=== PATIENT | female | born 1935 | race Caucasian/White ===

== ENCOUNTER → 2023-08-24 | Outpatient (CLI) | payer MEDICARE, OTHER, SELFPAY ==
--- OUTSIDE RECORDS SUMMARY | 2023-08-24 14:15 | XMS RPT_ITS | CCD ---
Author Name Unknown Address [address] [place] [address] Organization [facility] Care Team Providers Care Rn Case Mgr Name Role Phone AnnalisamarioDarwin Unavailable Unavailabl e Fracasso, Michael Alfredo Unavailable Unavailabl e Dumot, Guy Forrest Unavailable Unavailable Fracasso, Michael Alfredo Unavailable Unavailabl e Fracasso, Michael Alfredo Unavailable Unavailabl e Dumot, Guy Forrest Unavailable Unavailable Michael Orellana Primary Care Provider Mcihael Orellana Primary Care Provider Bradleyo DOMichael Primary Care Provider Michael Orellana DO Primary Care Provider Weston Pace DO Primary Care Provider Michael Orellana DO Primary Care Provider Weston Pace DO Primary Care Provider WESTON PACE Attending Unavailable WESTON PACE Primary Care Unavailable JAZZ ENRIQUEZ Attending Unavailable MICHAEL ORELLANA Primary Care Unavailable WESTON PACE Primary Care Unavailable WESTON PACE Attending Unavailable WESTON PACE Primary Care Unavailable Medications Current Medications Medication Drug Class(es) Dates Sig (Normalized) Sig (Original) amLODIPine 5 mg oral tablet (13 sources) Dihydropyridine Calcium Channel Misbah Start: 05-28-2023 amLODIPine (Norvasc) 5 MG tablet Indications: Essential hypertension Increase to 5 mg q PM 30 tablet 5 05/28/2023 Active Completed/Discontinued Medications Medication Drug Class(es) Dates Sig (Normalized) Sig (Original) gadobutrol (GADAVIST) injection 5 mL (1 source) Start: 06-16-2020 End: 06-16-2020 gadobutrol (GADAVIST) injection 5 mL Problems Active Problems Problem Classification Problem Date Documented Date Episodic/Chronic Anxiety disorders (8 sources) Mixed anxiety and depressive disorder; Translations: [Anxiety disorder, unspecified] Onset: 11-19-2015 01-28-2023 Chronic Coronary atherosclerosis and other heart disease (2 sources) Coronary atherosclerosis and other heart disease Onset: 04-28-2017 Deficiency and other anemia (1 source) Iron deficiency anemia secondary to blood loss (chronic); Translations: [Iron deficiency anemia secondary to blood loss (chronic)] Onset: 04-28-2017 Chronic Deficiency and other anemia (1 source) Deficiency and other anemia Onset: 04-28-2017 Diabetes mellitus without complication (17 sources) Type 2 diabetes mellitus without complication; Translations: [Type 2 diabetes mellitus without complications] Onset: 11-19-2015 11-19-2015 Chronic Diabetes mellitus without complication (1 source) Diabetes mellitus without complication Onset: 04-28-2017 Disorders of lipid metabolism (16 sources) Hypercholesterolemia; Translations: [Pure hypercholesterolemia, unspecified] Onset: 11-19-2015 11-19-2015 Chronic Esophageal disorders (16 sources) Gastroesophageal reflux disease without esophagitis; Translations: [Gastro-esophageal reflux disease without esophagitis] Onset: 11-19-2015 11-19-2015 Chronic Esophageal disorders (1 source) Esophageal disorders Onset: 04-28-2017 Essential hypertension (16 sources) Essential hypertension; Translations: [Essential (primary) hypertension] Onset: 10-12-2022 10-12-2022 Chronic Mood disorders (7 sources) Depressive disorder; Translations: [Major depressive disorder, single episode, unspecified] Onset: 11-19-2015 11-19-2015 Chronic Mood disorders (2 sources) Mood disorders; Translations: [Depression, unspecified] Onset: 05-31-2022 Occlusion or stenosis of precerebral arteries (8 sources) Left carotid artery stenosis; Translations: [Occlusion and stenosis of left carotid artery] Onset: 01-28-2023 01-28-2023 Chronic Other acquired deformities (1 source) Disorder of hand; Translations: [Contracture, unspecified hand] Chronic Other nervous system disorders (2 sources) Ataxia; Translations: [Ataxia, unspecified] Episodic Spondylosis; intervertebral disc disorders; other back problems (3 sources) Cervical radiculopathy; Translations: [Radiculopathy, cervical region] Onset: 04-29-2023 04-29-2023 Episodic Unclassified (1 source) Atelectasis / J98.11(ICD-10) Onset: 05-27-2017 Unclassified (1 source) Pulmonary fibrosis, unspecified / J84.10(ICD-10) Onset: 05-27-2017 Unclassified (3 sources) Benign neoplasm of duodenum / D13.2(ICD-10) Onset: 04-28-2017 Unclassified (1 source) Polyp of stomach and duodenum / K31.7(ICD-10) Onset: 04-28-2017 Unclassified (1 source) Liver disease, unspecified / K76.9(ICD-10) Onset: 05-27-2017 Unclassified (1 source) Cyst of pancreas / K86.2(ICD-10) Onset: 05-27-2017 Unclassified (1 source) Benign neoplasm of pharynx, unspecified / D10.9(ICD-10) Onset: 04-28-2017 Unclassified (1 source) long term care pharmacist (current) use of aspirin / Z79.82(ICD-10) Onset: 04-28-2017 Unclassified (1 source) Other specified diseases of biliary tract / K83.8(ICD-10) Onset: 05-27-2017 Unclassified (2 sources) Disease of stomach and duodenum, unspecified / K31.9(ICD-10) Onset: 04-28-2017 Unclassified (1 source) Personal history of malignant neoplasm of organs and systems / Z85.89(ICD-10) Onset: 04-28-2017 Unclassified (1 source) Unspecified osteoarthritis, unspecified site / M19.90(ICD-10) Onset: 04-28-2017 Unclassified (1 source) Anxiety disorder, unspecified / F41.9(ICD-10) Onset: 04-28-2017 Unclassified (1 source) Personal history of nicotine dependence / Z87.891(ICD-10) Onset: 04-28-2017 Unclassified (1 source) Chronic vascular disorders of intestine / K55.1(ICD-10) Onset: 05-27-2017 Unclassified (1 source) Athscl heart disease of [place] coronary artery w/o ang pctrs / I25.10(ICD-10) Onset: 05-27-2017 Past or Other Problems Problem Classification Problem Date Documented Date Episodic/Chronic Biliary tract disease (8 sources) Calculus of bile duct with obstruction; Translations: [Calculus of bile duct without cholangitis or cholecystitis with obstruction] Onset: 01-28-2023 01-28-2023 Episodic Diabetes mellitus with complications (9 sources) Hyperglycemia due to type 2 diabetes mellitus; Translations: [Type 2 diabetes mellitus with hyperglycemia] Onset: 12-21-2021 Resolved: 01-28-2023 05-31-2022 Chronic Other aftercare (1 source) Patient encounter status; Translations: [long term care pharmacist (current) use of non-steroidal anti-inflammatories (NSAID)] Onset: 11-19-2015 Resolved: 07-29-2016 07-29-2016 Episodic Other and unspecified benign neoplasm (2 sources) Benign neoplasm of duodenum; Translations: [Polyp of stomach and duodenum] Onset: 04-28-2017 Episodic Pancreatic disorders (not diabetes) (8 sources) Mass of pancreas; Translations: [Other specified diseases of pancreas] Onset: 01-28-2023 01-28-2023 Episodic Unclassified (2 sources) Patient encounter status; Translations: [NSAID long-term use] Onset: 11-19-2015 Resolved: 07-29-2016 07-29-2016 Results Test Name Value Interpretation Reference Range Facil ity Vital Signs Date Time Vital Sign Value Performing Clinician Racquel luque 05-26-2023 11:14-0400 Diastolic blood pressure 72 mm[Hg] [facility] Schedule [facility] 05-26-2023 11:14-0400 Systolic blood pressure 130 mm[Hg] [facility] Schedule [facility] 05-26-2023 11:03-0400 Heart rate 87 /min [facility] Schedule [facility] 05-26-2023 11:03-0400 SaO2% (BldA) [Mass fraction] 98 % [facility] Schedule [facility] 04-29-2023 09:47-0400 Body height 157.5 cm Weston Pace DO Work Phone: [facility] 04-29-2023 09:47-0400 Body mass index (BMI) [Ratio] 23.59 kg/m2 Weston Pace DO Work Phone: [facility] 04-29-2023 09:47-0400 Body temperature 97.5 [degF] Weston Pace DO Work Phone: [facility] [employer] 04-29-2023 09:47-0400 Body weight 58.51 kg Weston Pace DO Work Phone: [facility] [employer] 04-29-2023 09:47-0400 Diastolic blood pressure 73 mm[Hg] Weston Camposa DO Work Phone: [facility] [employer] 04-29-2023 09:47-0400 Heart rate 57 /min Weston Camposa DO Work Phone: [facility] [employer] 04-29-2023 09:47-0400 SaO2% (BldA) [Mass fraction] 97 % Weston Pace DO Work Phone: [facility] [employer] 04-29-2023 09:47-0400 Systolic blood pressure 152 mm[Hg] Weston Camposa DO Work Phone: [facility] [employer] 01-28-2023 10:00-0400 Body height 157.5 cm Weston Pace DO Work Phone: [facility] [employer] 01-28-2023 10:00-0400 Body mass index (BMI) [Ratio] 23.23 kg/m2 Weston Pace DO Work Phone: [facility] [employer] 01-28-2023 10:00-0400 Body temperature 97.3 [degF] Weston Pace DO Work Phone: [facility] [employer] 01-28-2023 10:00-0400 Body weight 57.61 kg Weston Pace DO Work Phone: [facility] [employer] 01-28-2023 10:00-0400 Diastolic blood pressure 68 mm[Hg] Weston Camposa DO Work Phone: [facility] [employer] 01-28-2023 10:00-0400 Heart rate 73 /min Weston Pace DO Work Phone: [facility] [employer] 01-28-2023 10:00-0400 SaO2% (BldA) [Mass fraction] 98 % Weston Pace DO Work Phone: [facility] 01-28-2023 10:00-0400 Systolic blood pressure 138 mm[Hg] Weston Pace DO Work Phone: [facility] Encounters Encounter Date Encounter Type Care Provider Facility Start: 05-28-2023 Orders Only Weston ren DO Work Phone: [facility] Procedures Date Procedure Procedure Detail Performing Clinician Start: 06-16-2020 Mri brain brain stem w/o w/contrast material Michael Mario Mk Work Phone: Start: 04-28-2017 Anesth, upper gi visualize Darwin Colvinbrady Start: 04-28-2017 Egd transoral biopsy single/multiple Darwin Colvinkimberleemario Start: 03-23-2011 SURGICAL PATHOLOGY, CONVERTED Dillan Carpenter MD Work Phone: Start: 03-11-2011 SURGICAL PATHOLOGY, CONVERTED Dillan Carpenter MD Work Phone: Start: 06-28-2008 CYTOLOGY ACIDIZER HELPER, CONVERTED Jaret Nair MD Work Phone: Plan of Treatment Date Care Activity Detail Author Start: 12-03-2024 Diabetes Screening Diabetes Screening [facility] Start: 04-13-2024 Glaucoma screening Diabetes: Retinopathy Screening [facility] Start: 10-12-2023 Diabetic foot examination Diabetes: Foot Exam [facility] Start: 08-26-2023 End: 08-26-2023 Patient encounter procedure [facility] Start: 05-26-2023 End: 05-26-2023 Clinical Support 05/26/2023 11:00 AM EDT Clinical Support [facility] [address] [place] [address] [facility] Start: 04-29-2023 End: 04-29-2024 CBC W Auto Differential panel - Blood CBC auto differential Lab Routine Essential hypertension Expected: 04/29/2023 (Approximate), Expires: 04/29/2024 [facility] Work Phone: Immunizations Immunization Date Immunization Notes Care Provider Salima mead 06-17-2022 Covid-19, Pfizer Bivalent Booster, (Age 12y+), Im, 30 Mcg/0e Michael Orellana DO Work Phone: [facility] 05-31-2022 influenza, injectabl e, quadrivalent, preservative free Weston Pace DO Work Phone: [facility] 05-31-2022 Influenza, Seasonal, Quadrivalent, Adjuvanted Michael Orellana DO Work Phone: [facility] 05-31-2022 influenza virus vacc ine, unspecified formulation Weston Pace DO Work Phone: [facility] 07-29-2021 zoster vaccine recombinant Michael Orellana DO Work Phone: [facility] 05-29-2021 Pfizer SARS-CoV-2 Vaccination Michael Orellana DO Work Phone: [facility] 05-21-2021 Influenza, High-dose Seasonal, Quadrivalent, Preservative Free Michael Orellana DO Work Phone: [facility] 05-21-2021 influenza virus vacc ine, unspecified formulation Jaret Nair MD Work Phone: [facility] 05-02-2021 zoster vaccine recombinant Michael Orellana DO Work Phone: [facility] 10-02-2020 COVID-19, Pfizer, PF , 30mcg/0.3mL Michael Orellana DO Work Phone: [facility] 09-04-2020 COVID-19, Pfizer, PF , 30mcg/0.3mL Michael Orellana DO Work Phone: [facility] 05-05-2020 influenza, injectabl e, quadrivalent, preservative free Michael Orellana DO Work Phone: [facility] 06-02-2019 Influenza, injectabl e, Madin [place] Canine Kidney, preservative free, quadrivalent Michael Mk [employer] 06-02-2018 Influenza, injectabl e, Madin [place] Canine Kidney, preservative free, quadrivalent [facility] 05-17-2017 influenza, injectabl e, quadrivalent, preservative free [facility] [place] 05-29-2016 influenza, high dose seasonal, preservative-free Michael Orellana DO Work Phone: [facility] 05-29-2016 influenza, injectabl e, quadrivalent, contains preservative [facility] [place] 07-16-2015 pneumococcal conjuga te vaccine, 13 valent [facility] 05-15-2014 influenza, seasonal, injectable Michael Orellana DO Work Phone: [facility] 05-15-2014 pneumococcal Conjuga te, unspecified formulation [facility] [place] 05-15-2014 pneumococcal polysaccharide vaccine, 23 valent [facility] 07-31-2009 novel influenza-H1N1 -09, preservative-free, injectable [facility] [place] Payers Date Payer Category Payer Medicare xxxxxxxxxxx [id number] 2005 Private Health Insurance [id number] 2005 Private Health Insurance [id number] 1999 Medicare [id number] 1999 Medicare [id number] Medicare [id number] Social History Date Type Detail Facility Start: 06-12-2019 End: 04-29-2020 Tobacco smoking status NHIS Former smoker [facility] End: 03-19-1997 History of tobacco use Current smoker [employer] Start: 04-29-2020 Tobacco use and exposure Never used [employer] Start: 04-29-2020 End: 04-29-2023 Alcohol intake Current non-drinker of alcohol (finding) [employer] Start: 02-12-2019 History SDOH Alcohol Frequency 1 [employer] Start: 02-12-2019 History SDOH Social Connections Phone 5 [employer] Start: 02-12-2019 History SDOH Social [employer]ctions Membership 2 [employer] Start: 02-12-2019 History SDOH Social Connections Living 4 [employer] Start: 02-12-2019 History SDOH Physica l Activity DPW 0 [employer] Start: 1935 Sex Assigned At Not on file [place] Start: 06-12-2019 End: 05-28-2023 Alcohol intake No [employer] Start: 04-29-2020 End: 05-28-2023 Alcohol intake [employer] Phone: End: 03-19-1997 History of tobacco use Cigarette Smoker [facility] Start: 10-02-2022 End: 04-29-2023 Exposure to SARS-CoV-2 (event) Not sure [facility] Tobacco smoking stat [facility] Tobacco smoking consumption unknown [facility] Medical Equipment Procedure Code Equipment Code Equipment Origin al Text Equipment Identifier Dates 1 each by In Vit ro route 2 times daily DX: E11.9 [id number] Start: 08-03-2019 1 each by In Vit ro route 2 times daily DX: E11.9 [id number] Start: 07-19-2018 1 each by In Vit ro route 2 times daily DX: E11.9 [id number] Start: 08-04-2020 1 each by Other route in the morning and 1 each in the evening. Take before meals. [id number] Start: 07-06-2022 End: 01-28-2023 by Other route 2 times daily (before meals). [id number] Start: 01-28-2023 Goals Date Patient Goal Desired Activity /State Clinical Notes 01-11-2022 to 05-26-2023 Re Sanders MA - 05/26/2023 11:00 AM Judd Whyte MA - 05/26/2023 11:00 AM EDTTelephone Encounter - Cintia Hoffman LPN - 05/19/2023 1:50 PM EDTPatient Instructions Note Date & Type Note Facility 05-26-2023 History of Present illness Narrative The patient, Kaykay Howard, identity was verified by name. Supervising provider for clinic visit: Dr. Pace Chief Complaint Patient presents with Blood Pressure Check Reason for BP visit: elevated at last appt BP (!) 147/79 Pulse 87 SpO2 98% BP Readings from Last 3 Encounters: 05/26/23 (!) 147/79 04/29/23 (!) 152/73 01/28/23 138/68 05/26/23 130/72 Pulse Readings from Last 3 Encounters: 05/26/23 87 04/29/23 57 01/28/23 73 Patient denies any shortness of breath or distress at this time. Patient states compliant with medications as written: Yes Medication Reconciliation completed. BP medication taken prior to this visit? Yes BP taken with automated Home monitoring BP: Yes Phone number where patient can be reached: see chart Pt advised if follow up needed, outreach will occur within 48 hrs. Future Appointments Date Time Provider Department Center 08/26/2023 11:00 AM Weston Pace DO [facility] Patient was left a detailed message and to call the office if any questions. documented in this encounter [facility] 05-19-2023 Telephone encounter Note Rx loaded Next ov 08/26/23 [facility] 05-19-2023 Miscellaneous Notes Rx loaded Next ov 08/26/23 documented in this encounter [facility] 05-02-2023 Telephone encounter Note Message released to patient as written. ----- Message ----- From: Weston Pace DO Sent: 05/01/2023 9:31 PM EDT To: [facility] Clinical Audio Technician Lab all well including diabetic control, CBC chemistries and lipid panel. No med changes Patient's further questions if applicable: NA Were all questions from office addressed or relayed to the patient from encounter: Yes [facility] 05-02-2023 Miscellaneous Notes Message released to patient as written. ----- Message ----- From: Weston Pace DO Sent: 05/01/2023 9:31 PM EDT To: [facility] Clinical Audio Technician Lab all well including diabetic control, CBC chemistries and lipid panel. No med changes Patient's further questions if applicable: NA Were all questions from office addressed or relayed to the patient from encounter: Yes Placed call to patient. Unable to reach them by phone to discuss lab results. Left detailed message to return call to discuss results. ----- Message from Holly Caba MA sent at 05/02/2023 7:49 AM EDT ----- ----- Message ----- From: Weston Pace DO Sent: 05/01/2023 9:31 PM EDT To: [facility] Clinical Audio Technician Lab all well including diabetic control, CBC chemistries and lipid panel. No med changes documented in this encounter [facility] 05-02-2023 Telephone encounter Note Placed call to patient. Unable to reach them by phone to discuss lab results. Left detailed message to return call to discuss results. [facility] 05-02-2023 Telephone encounter Note ----- Message from Holly Caba MA sent at 05/02/2023 7:49 AM EDT ----- ----- Message ----- From: Weston Pace DO Sent: 05/01/2023 9:31 PM EDT To: [facility] Clinical Audio Technician Lab all well including diabetic control, CBC chemistries and lipid panel. No med changes [facility] 04-29-2023 History of Present illness Narrative Images from the original note were not included. [facility] [address] [place] [address] [address] [facility] [id number] Visit type: Established Patient Reason for Visit: Follow-up (3 month med check) Assessment / Plan: Kaykay was seen today for follow-up. Diagnoses and all orders for this visit: Essential hypertension (Primary) Comments: Uncontrolled, increase lisinopril 30 mg daily. Continue amlodipine. BP check in 4 weeks Orders: - amLODIPine (Norvasc) 2.5 MG tablet; Take 1 tablet (2.5 mg) by mouth daily. - lisinopril 30 MG tablet; Take 1 tablet (30 mg) by mouth daily for 30 doses. - CBC auto differential; Future - Comprehensive metabolic panel; Future - CBC auto differential - Comprehensive metabolic panel Depression, unspecified depression type Comments: Stable, continue Celexa Orders: - citalopram (CeleXA) 20 MG tablet; Take 1 tablet (20 mg) by mouth daily. Type 2 diabetes mellitus without complication, without long-term current use of insulin (CMS/HCC) (HCC) Comments: Improved, Continue metformin and Amaryl and Januvia Orders: - glimepiride (Amaryl) 4 MG tablet; Take 1 tablet (4 mg) by mouth every morning (before breakfast) for 90 doses. - metFORMIN (Glucophage) 500 MG tablet; Take 1 tablet (500 mg) by mouth in the morning and 1 tablet (500 mg) in the evening. Take with meals. - SITagliptin (Januvia) 100 MG tablet; Take 1 tablet (100 mg) by mouth every morning. - Hemoglobin A1c; Future - Hemoglobin A1c Gastroesophageal reflux disease without esophagitis Comments: Stable, avoidance measures continue omeprazole Orders: - omeprazole (PriLOSEC) [address] capsule; Take 1 capsule (20 mg) by mouth every morning (before breakfast). Radiculopathy of cervical spine Hypercholesterolemia Comments: Stable, continue Crestor Orders: - Lipid panel; Future - Lipid panel Other orders - rosuvastatin (Crestor) 5 MG tablet; Take 1 tablet (5 mg) by mouth daily. Length of service 35 minutes doing patient interview, exam and discussion of diagnosis and treatment options Subjective: Patient ID: Kaykay Howard is a 88 y.o. female. HPI hypertensive type II diabetic with history of hypercholesterolemia chronic anxiety presents for checkup. Review of systems completed. Denies recent earache sore throat or purulent rhinorrhea. No exertional chest pain jaw pain or arm pain. No dyspnea. Feels good overall. Will be getting recheck GI evaluation for her choledocholithiasis and pancreatic lesion in a few months Review of Systems no change in vision. No change in skin. Denies cough congestion or dyspnea. No dysphagia. No abdominal pain. No melena or blood. No constipation diarrhea. No dysuria. Rare arthralgia. Her anxiety is well controlled on Celexa. Her biggest worry is living with her son. He is a good man but he keeps her anxious. Her daughter is very supportive No Known Allergies Current Outpatient Medications on File Prior to Visit Medication Sig Dispense Refill aspirin 81 MG EC tablet Take by mouth. Cranberry-Vitamin C-Vitamin E 4200-20-3 MG-MG-UNIT capsule Take 1 capsule by mouth in the morning. Estrogens Conjugated (Premarin) vaginal cream Insert into the vagina. ferrous sulfate 325 (65 Fe) MG tablet Take 325 mg by mouth. glucose blood (CoreDialuch Verio) test strip by Other route 2 times daily (before meals). 100 strip 2 [DISCONTINUED] amLODIPine (Norvasc) 2.5 MG tablet Take 1 tablet (2.5 mg) by mouth daily. 30 tablet 2 [DISCONTINUED] citalopram (CeleXA) 20 MG tablet Take 1 tablet (20 mg) by mouth daily. 30 tablet 2 [DISCONTINUED] glimepiride (Amaryl) 4 MG tablet Take 1 tablet (4 mg) by mouth every morning (before breakfast) for 90 doses. 30 tablet 2 [DISCONTINUED] lisinopril 20 MG tablet Take 1 tablet (20 mg) by mouth daily. 30 tablet 2 [DISCONTINUED] metFORMIN (Glucophage) 500 MG tablet Take 1 tablet (500 mg) by mouth in the morning and 1 tablet (500 mg) in the evening. Take with meals. 60 tablet 2 [DISCONTINUED] omeprazole (PriLOSEC) [address] capsule Take 1 capsule (20 mg) by mouth every morning (before breakfast). 30 capsule 2 [DISCONTINUED] rosuvastatin (Crestor) 5 MG tablet Take 1 tablet (5 mg) by mouth daily. 30 tablet 5 [DISCONTINUED] SITagliptin (Januvia) 100 MG tablet Take 1 tablet (100 mg) by mouth every morning. 30 tablet 2 No current facility-administered medications on file prior to visit. Patient Active Problem List Diagnosis Gastroesophageal reflux disease without esophagitis Hypercholesterolemia Type 2 diabetes mellitus without complication (CMS/HCC) (HCC) Anxiety and depression Essential hypertension Calculus of bile duct without cholecystitis with obstruction Pancreatic mass Carotid stenosis, asymptomatic, left Social History Tobacco Use Smoking status: Former Types: Cigarettes Quit date: 03/19/1997 Years since quittin.1 Smokeless tobacco: Never Substance Use Topics Alcohol use: No Alcohol/week: 0.0 standard drinks of alcohol Past Surgical History: Procedure Laterality Date APPENDECTOMY 1971 CATARACT EXTRACTION W/ INTRAOCULAR LENS IMPLANT, BILATERAL Left 2013 and 2014 CHOLECYSTECTOMY 2004 with lung resection due to fungal inf. COLONOSCOPY ERCP 07/2022 Sphincterotomy, CBC stent and ampulla biopsy precancerous ERCP 12/2022 Stent removal EXPLORATORY LAPAROTOMY 2004 liver mass removed LUMBAR SPINE SURGERY 1996 HNP LUNG SURGERY Left 2005 fungal infection PARTIAL HYSTERECTOMY 1971 uterine CA- USO UPPER GASTROINTESTINAL ENDOSCOPY 2017 duodenal polyp. [facility] Family History Problem Relation Name Age of Onset Pancreatic cancer Mother age 83 Heart disease Father not close Diabetes Sister 2- 1 Cancer Brother 5-3 Diabetes Brother 5-3 Objective: BP (!) 152/73 Pulse 57 Temp 36.4 C (97.5 F) (Temporal) Ht 5' 2 (1.575 m) Wt 129 lb (58.5 kg) SpO2 97% BMI 23.59 kg/m Physical Exam The physical exam is generally normal. Patient appears well, alert and oriented x 3, pleasant, cooperative. Vitals are as noted. She does have a faint left carotid bruit. Neck supple, no abnormal adenopathy, thyroid lesions or masses. Ears, nose and throat are normal without acute findings. Lungs are clear to auscultation. Heart is regular, without murmurs, gallops or ectopy. Abdomen is soft, non tender, without masses, hepatosplenomegaly, or bruits. Normal BS evident. Extremities are normal without edema. Peripheral pulses are fair. No worrisome skin lesions. Screening neurological exam is normal without focal deficits. documented in this encounter [facility] 04-29-2023 Instructions Weston Pace DO - 04/29/2023 10:00 AM EDT Blood pressure check with staff in 4 weeks documented in this encounter [facility] 01-28-2023 History of Present illness Narrative Images from the original note were not included. [facility] [address] [place] [id number] Visit type: Established Patient Reason for Visit: Follow-up (3 month med check) Assessment / Plan: Kaykay was seen today for follow-up. Diagnoses and all orders for this visit: Type 2 diabetes mellitus without complication, without long-term current use of insulin ([facility]) ([facility]) (Primary) Comments: Improved, await lab. Continue metformin and Amaryl and Januvia Orders: - glimepiride (Amaryl) 4 MG tablet; Take 1 tablet (4 mg) by mouth every morning (before breakfast) for 90 doses. - metFORMIN (Glucophage) 500 MG tablet; Take 1 tablet (500 mg) by mouth in the morning and 1 tablet (500 mg) in the evening. Take with meals. - SITagliptin (Januvia) 100 MG tablet; Take 1 tablet (100 mg) by mouth every morning. - TSH; Future - Hemoglobin A1c; Future - TSH - Hemoglobin A1c Essential hypertension Comments: Stable, continue lisinopril and amlodipine Orders: - amLODIPine (Norvasc) 2.5 MG tablet; Take 1 tablet (2.5 mg) by mouth daily. - lisinopril 20 MG tablet; Take 1 tablet (20 mg) by mouth daily. - CBC auto differential; Future - Comprehensive metabolic panel; Future - CBC auto differential - Comprehensive metabolic panel Depression, unspecified depression type Comments: Stable, continue Celexa Orders: - citalopram (CeleXA) 20 MG tablet; Take 1 tablet (20 mg) by mouth daily. Gastroesophageal reflux disease without esophagitis Comments: Stable, avoidance measures continue omeprazole Orders: - omeprazole (PriLOSEC) [address] capsule; Take 1 capsule (20 mg) by mouth every morning (before breakfast). Hypercholesterolemia Comments: History of, check lab Orders: - Lipid panel; Future - Lipid panel Anxiety and depression Pancreatic mass Comments: Improving, follow-up with GI as directed Calculus of bile duct without cholecystitis with obstruction Comments: Resolved, Other orders - glucose blood (CoreDialuch Verio) test strip; by Other route 2 times daily (before meals). - Diabetes Foot Exam Length of service 44 minutes reviewing chart, patient interview and exam, discussion of diagnosis and treatment options. Subjective: Patient ID: Kaykay Howard is a 87 y.o. female. HPI patient presents for first-time evaluation by myself to assume management for her diabetes, hypertension and generalized anxiety disorder. Past medical, past surgical, social and family history reviewed and chart updated appropriately. Most markedly she recently had a common bile duct stent and ERCP completed in December for removal of a stent that was placed for obstructive jaundice last winter. There is concerned about pancreatic mass but a biopsy showed apparently precancerous lesion . I do not have the information in the record. Reviewed her record extensively specifically the GI work-up per Dr. Mackey. Overall feeling well. Better appetite. Glucose levels about 150 and lower. Her last A1c was elevated. She denies polyuria polydipsia or dry mouth. No diaphoresis. She is feeling better overall Review of Systems ex-smoker and drinker more than 30 years. No recent earache sore throat or cough. No change in vision. No dysphagia. No heartburn on her meds. No early satiety. No abdominal pain. Bowels are regular. No melena or blood. No dysuria. Denies exertional chest pain cough or wheezing. No PND orthopnea claudication or edema. No unhealing skin lesions. She feels Celexa is helpful. Her 2 sons and daughter check in on her. No Known Allergies Current Outpatient Medications on File Prior to Visit Medication Sig Dispense Refill aspirin 81 MG EC tablet Take by mouth. Cranberry-Vitamin C-Vitamin E 4200-20-3 MG-MG-UNIT capsule Take 1 capsule by mouth in the morning. Estrogens Conjugated (Premarin) vaginal cream Insert into the vagina. ferrous sulfate 325 (65 Fe) MG tablet Take 325 mg by mouth. [DISCONTINUED] amLODIPine (Norvasc) 2.5 MG tablet Take 1 tablet (2.5 mg) by mouth daily. 30 tablet 2 [DISCONTINUED] citalopram (CeleXA) 20 MG tablet Take 1 tablet (20 mg) by mouth daily. 30 tablet 2 [DISCONTINUED] glimepiride (Amaryl) 4 MG tablet Take 1 tablet (4 mg) by mouth every morning (before breakfast) for 90 doses. 90 tablet 0 [DISCONTINUED] glucose blood (CoreDialuch Verio) test strip 1 each by Other route in the morning and 1 each in the evening. Take before meals. 100 each 2 [DISCONTINUED] lisinopril 20 MG tablet Take 1 tablet (20 mg) by mouth daily. 30 tablet 2 [DISCONTINUED] metFORMIN (Glucophage) 500 MG tablet Take 1 tablet (500 mg) by mouth in the morning and 1 tablet (500 mg) in the evening. Take with meals. 60 tablet 2 [DISCONTINUED] omeprazole (PriLOSEC) [address] capsule Take 1 capsule (20 mg) by mouth every morning (before breakfast). 30 capsule 2 [DISCONTINUED] SITagliptin (Januvia) 100 MG tablet Take 1 tablet (100 mg) by mouth every morning. 30 tablet 1 No current facility-administered medications on file prior to visit. Patient Active Problem List Diagnosis Gastroesophageal reflux disease without esophagitis Hypercholesterolemia Type 2 diabetes mellitus without complication (CMS/HCC) (HCC) Anxiety and depression Essential hypertension Calculus of bile duct without cholecystitis with obstruction Pancreatic mass Social History Tobacco Use Smoking status: Former Types: Cigarettes Quit date: 03/19/1997 Years since quittin.8 Smokeless tobacco: Never Substance Use Topics Alcohol use: No Alcohol/week: 0.0 standard drinks of alcohol Past Surgical History: Procedure Laterality Date APPENDECTOMY 1971 CATARACT EXTRACTION W/ INTRAOCULAR LENS IMPLANT, BILATERAL Left 2013 and 2014 CHOLECYSTECTOMY 2004 with lung resection due to fungal inf. COLONOSCOPY ERCP 07/2022 Sphincterotomy, CBC stent and ampulla biopsy precancerous ERCP 12/2022 Stent removal EXPLORATORY LAPAROTOMY 2004 liver mass removed LUMBAR SPINE SURGERY 1996 HNP LUNG SURGERY Left 2005 fungal infection PARTIAL HYSTERECTOMY 1972 uterine CA- USO UPPER GASTROINTESTINAL ENDOSCOPY 2017 duodenal polyp. [facility] Family History Problem Relation Name Age of Onset Pancreatic cancer Mother age 83 Heart disease Father not close Cancer Brother 5-3 Objective: BP 138/68 Pulse 73 Temp 36.3 C (97.3 F) (Temporal) Ht 5' 2 (1.575 m) Wt 127 lb (57.6 kg) SpO2 98% BMI 23.23 kg/m Physical Exam The physical exam is generally normal. Patient appears well, alert and oriented x 3, pleasant, cooperative. Vitals are as noted. Faint Left carotid bruit. Neck supple, no abnormal adenopathy, thyroid lesions or masses. Ears, nose and throat are normal without acute findings. Lungs are clear to auscultation. Heart is regular, without murmurs, gallops or ectopy. Abdomen is soft, non tender, without masses, hepatosplenomegaly, or bruits. Normal BS evident. Extremities are normal without edema. Peripheral pulses are fair. No worrisome skin lesions. Screening neurological exam is normal without focal deficits. Bilateral foot exam revealed intact color, temperature, sensation, without skin breakdowns. Dorsalis pedis and posterior tibial pulses are adequate. documented in this encounter [id number] 10-15-2022 Telephone encounter Note Message released to patient as written. Patient's further questions if applicable: Patient called back in and explained that she is ready to take the Janevia and to increase it. Please advise. Were all questions from office addressed or relayed to the patient from encounter: Yes [id number] 10-15-2022 Miscellaneous Notes Message released to patient as written. Patient's further questions if applicable: Patient called back in and explained that she is ready to take the Janevia and to increase it. Please advise. Were all questions from office addressed or relayed to the patient from encounter: Yes documented in this encounter [facility] [employer] 01-11-2022 Note HNO ID: [id number] Author: Dao Brasher MD Service: ? Author Type: Physician Type: Progress Notes Filed: 01/11/2022 12:45 PM Note Text: Patient presents with: Eye Problem: left eye red and itching x this am HPI: Feeling left eye irritation since this morning. Medial left eye is red and itches Positive symptoms: wants to scratch her left eey, Negative symptoms: Cough, Sore throat, Nasal Congestion, Rhinorrhea, Fever, vision change, eye discharge, known injury, OTC: none PAST MEDICAL HISTORY Diagnosis Date - Anxiety - Depression - Diabetes mellitus type 2 (HCC) - GERD (gastroesophageal reflux disease) - Hypertension PAST SURGICAL HISTORY Procedure Laterality Date - APPENDECTOMY 1971 - CHOLECYSTECTOMY HX 2004 - COLONOSCOPY - EGD 04/2017 duodenal polyp - HYSTERECTOMY 1971 with uniooph - PAST SURGICAL HISTORY OF 2004 Liver mass removed - REMV CATARACT EXTRACAP,INSERT LENS Bilateral - SPINE SURGERY HX 1996 lumbar decompression MEDICATIONS: Current Outpatient Medications Medication Sig - amLODIPine (NORVASC) 2.5 mg tablet Take 1 tablet by mouth once daily. - citalopram (CELEXA) 20 mg tablet Take 1 tablet by mouth once daily. - conjugated estrogens (PREMARIN) vaginal cream Use vaginally. - fluticasone (FLONASE) 50 mcg/actuation nasal spray Use 2 Sprays in the nose. - glimepiride (AMARYL) 4 mg tablet Take 1 tablet by mouth twice daily. - lisinopril (ZESTRIL, PRINIVIL) 20 mg tablet Take 1 tablet by mouth once daily. - metFORMIN (GLUCOPHAGE) 500 mg tablet Take 500 mg by mouth. - omeprazole (PRILOSEC) 20 mg capsule Take 1 capsule by mouth once daily. - ascorbic acid, vitamin C, (VITAMIN C) 500 mg tablet Take by mouth. - aspirin, enteric coated (ASPIRIN, ENTERIC COATED) 81 mg EC tablet Take by mouth. - ferrous sulfate 325 mg (65 mg iron) tablet Take 325 mg by mouth. No current facility-administered medications for this visit. ALLERGIES: ALLERGIES No Known Allergies VITALS: BP 126/82 Pulse 88 Temp 36.9 ?C (98.4 ?F) Resp 16 Wt 60.3 kg (133 lb) SpO2 96% PHYSICAL EXAM: GEN: Pleasant, in no acute distress. HEENT: PERRL, EOMI, Normal field of vision bilaterally. right conjunctiva clear. Left eye: Nasal 1/2 of the sclera has subconjunctival hemorrhage. There is a 1mm eschar below the sclera at 10:00 and small pool of blood inferiorly. Ears: canals clear. TMs without erythema, bulge, or effusion Sinuses: non-tender frontal sinus, non-tender maxillary sinuses Throat: moist mucous membranes, no erythema, Neck: supple, no thyromegaly, no lymphadenopathy HEART: regular rate and rhythm, no murmurs LUNGS: clear to auscultation, no wheezes or crackles, no increased WOB ASSESSMENT/PLAN: 1. Subconjunctival hematoma, left - ICD9: 372.72, ICD10: H11.32 Normally self limited condition. Follow up with eye doctor this week. Follow up emergently with vision change, increasing pain, or sanguinous bulla formation. Dao Brasher MD [facility] documented in this encounter [facility] Work Phone: Evaluation note* Diagnosis Type 2 diabetes mellitus without complication, without long-term current use of insulin ([facility]) ([facility]) documented in this encounter [facility]* Diagnosis Type 2 diabetes mellitus without complication, without long-term current use of insulin (CMS/HCC) ([facility])- Primary Essential hypertension Unspecified essential hypertension Depression, unspecified depression type Gastroesophageal reflux disease without esophagitis Esophageal reflux Hypercholesterolemia Pure hypercholesterolemia Anxiety and depression Pancreatic mass Unspecified disease of pancreas Calculus of bile duct without cholecystitis with obstruction Carotid stenosis, asymptomatic, left documented in this encounter [facility]* Diagnosis Essential hypertension- Primary Unspecified essential hypertension Depression, unspecified depression type Type 2 diabetes mellitus without complication, without long-term current use of insulin (CMS/HCC) ([facility]) Gastroesophageal reflux disease without esophagitis Esophageal reflux Radiculopathy of cervical spine Brachial neuritis or radiculitis nos Hypercholesterolemia Pure hypercholesterolemia [facility]* Diagnosis Essential hypertension Unspecified essential hypertension [facility]* Diagnosis Essential hypertension Unspecified essential hypertension documented in this encounter [facility] note* Diagnosis Essential hypertension Unspecified essential hypertension documented in this encounter [facility] Summary Purpose Family History No Family History Records FoundNo Family History Records FoundNo Family History Records FoundNo Family History Records Found Advance Directives No Advanced Directives Records FoundDocuments on File Type Date Recorded 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 ACP-Advance Directive ACP-Power of [employer] Consultant Latest Code Status on File Code Status Date Activated Date Inactivated Comments Full Code 03/22/2017 11:29 AM 03/22/2017 4:10 PM Documents on File Type Date Recorded 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 Advance Directives and Living Will Power of [employer] Consultant Latest Code Status on File Code Status Date Activated Date Inactivated Comments Full Code 03/22/2017 11:29 AM 03/22/2017 4:10 PM Documents on File Type Date Recorded 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 ACP-Advance Directive ACP-Power [employer] Consultant Reason for Referral Status Reason Specialty Diagnoses / Procedures Referre d By Contact Referred To Contact [facility]iology Diagnoses Ataxia Procedures MRI BRAIN W WO CONTRAST Michael Orellana, DO [address] [place] [address] Assessments Diagnosis Ataxia, unspecified Ataxia Lack of coordination Additional Source Comments INFORMATION SOURCE (unrecogn ized section and content) DATE CREATED AUTHOR AUTHOR'S ORGANIZ ATION 12/18/2021 [facility] DATE CREATED AUTHOR AUTHOR'S ORGANIZ ATION 01/11/2022 [facility] DATE CREATED AUTHOR AUTHOR'S ORGANIZ ATION 07/22/2023 [facility] Reason for Visit (unrecogniz ed section and content) Reason Comments Follow-up 3 month med check Reason Onset Date Comments Results 05/02/2023 Reason Onset Date Comments Med Refill 05/19/2023 Reason Comments Blood Pressure Check Care Teams (unrecognized sec tion and content) Rn Case Mgr Relationship Specialty Start Date End Date Michael Orellana, DO [address] [place] [address] PCP - General 01/13/19 Rn Case Mgr Relationship Specialty Start Date End Date SanjeevWeston, DO [address] [place], [place] [id number] PCP - General Family Medicine 01/28/23 Rn Case Mgr Relationship Specialty Start Date End Date SanjeevWestno, DO [address] [place] [address] PCP - General Family Medicine 01/28/23 Rn Case Mgr Relationship Specialty Start Date End Date SanjeevWeston, DO [address], [place] [id number] PCP - General Family Medicine 01/28/23 Rn Case Mgr Relationship Specialty Start Date End Date SanjeevWeston, DO [address] [place] [address] PCP - General Family Medicine 01/28/23 Rn Case Mgr Relationship Specialty Start Date End Date Michael Orellana, DO [address] [place], [place] [id number] PCP - General Family Medicine 01/11/22 Rn Case Mgr Relationship Specialty Start Date End Date SanjeevWeston, DO [address] [place] [address] PCP - General Family Medicine 01/28/23 Rn Case Mgr Relationship Specialty Start Date End Date SanjeevWeston, DO [address] [place] [id number] PCP - General Family Medicine 01/28/23 Rn Case Mgr Relationship Specialty Start Date End Date Sanjeev Weston Duarte, DO [address] [place] [phone] PCP - General Family Medicine 01/28/23 Source Comments (unrecognize d section and content) In the event this informatio n is protected by the Federal Confidentiality of Alcohol and Drug Abuse Patient Records regulations: The Federal rules restrict any use of the information to criminally investigate or prosecute any alcohol or drug abuse patient.[facility] the event this information is protected by the Federal Confidentiality of Alcohol and Drug Abuse Patient Records regulations: The Federal rules restrict any use of the information to criminally investigate or prosecute any alcohol or drug abuse patient.[facility] the event this information is protected by the Federal Confidentiality of Alcohol and Drug Abuse Patient Records regulations: The Federal rules restrict any use of the information to criminally investigate or prosecute any alcohol or drug abuse patient.[facility] FOR RECORDS PERTAINING TO PATIENTS WHO ARE OR HAVE BEEN ENROLLED IN A CHEMICAL DEPENDENCY/SUBSTANCEABUSE PROGRAM, SOME INFORMATION MAY BE OMITTED. This clinical summary was aggregated from multiple sources. Caution should be exercised in using it in the provision of clinical care. This summary normalizes information from multiple sources, and as a consequence, information in this document may materially change the coding, format and clinical context of patient data. In addition, data may be omitted in some cases. CLINICAL DECISIONS SHOULD BE BASED ON THE PRIMARY CLINICAL RECORDS. [facility] [employer] [facility]. provides no warranty or guarantee of the accuracy or completeness of information in this document.
[2023-08-24 15:37] LABS: Absolute Lymphocyte Count 1.75 X10^3/uL (0.83-4.51); Absolute Neutrophil Count 3.9 X10^3/uL (2.0-7.7); Basophil# 0.08 X10^3/uL; Basophil% 1.2 % (0-1); Eosinophil# 0.19 X10^3/uL; Eosinophils% 2.9 % (0-5); Hematocrit 36.1 % (37-47); Hemoglobin 11.3 g/dL (12.0-15.0); Lymphocyte # 1.75 X10^3/ul (0.83-4.51); Lymphocyte % 26.7 % (19-41); Mean Corp Hgb Conc 31.3 g/dL (32-36); Mean Corpuscular Hgb 27.4 pg (27.0-32.0); Mean Corpuscular Volume 87.4 fL (81-99); Mean Platelet Vol. 12.2 fl (6.2-12.0); Monocyte# 0.61 X10^3/uL; Monocyte% 9.3 % (0-10); NRBC Flagged by Analyzer 0 % (0-5); Neutrophil # 3.89 X10^3/uL (2.7-7.7); Neutrophil % 59.4 % (47-70); Platelet Count 203 K/mm3 (150-450); RBC Distribution Width CV 13.2 % (11.6-14.6); RBC Distribution Width SD 41.9 fl (35.1-43.9); Red Blood Count 4.13 M/mm3 (4.2-5.4); White Blood Count 6.6 K/mm3 (4.4-11.0)
[2023-08-24 16:11] LABS: ALB/GLOB Ratio 1.2 RATIO (0.9-2.4); AST(SGOT) 33 U/L (15-37); Alanine Aminotransfer ALT/SGPT 28 U/L (13-56); Albumin, Serum 3.9 g/dL (3.2-5.0); Alkaline Phosphatase 52 U/L (45-117); Anion Gap 6 (5-15); BUN 25 mg/dL (7-18); BUN/Creat Ratio 32.1 RATIO (10-20); Calcium,Total 9.7 mg/dL (8.5-10.1); Chloride 107 mmol/L (98-107); Creatinine, Serum 0.78 mg/dL (0.55-1.02); EST Glomerular Filtration Rate 74 mL/min (>60); Est Glom Filt Rate - Afr Amer 90 mL/min (>60); Globulin 3.2 g/dL (2.2-4.2); Glucose 176 mg/dL (74-106); Potassium 4.1 mmol/L (3.5-5.1); Protein, Total 7.1 g/dL (6.4-8.2); Sodium Level 140 mmol/L (136-145)
[2023-08-24 16:15] LABS: Hemoglobin A1c 7.3 % (3.8-5.6)
== END | disposition home or self-care (01) ==
LOC: BFHLAB 13:48
PROVIDERS: PCP Nurse Practitioner Family; Visit Provider Nurse Practitioner Family
DX: I10 Essential (primary) hypertension (principal); E11.65 Type 2 diabetes mellitus with hyperglycemia
CPT/HCPCS: 36415; 80053; 83036; 85025

== ENCOUNTER 2024-01-02 18:20 | Emergency (ER) | payer MEDICARE, OTHER, SELFPAY ==
[2024-01-02 18:21] VITALS: BP 120/56; PULSE 86; RESP 22; TEMP 36.2; O2SAT 100
[2024-01-02 18:49] VITALS: O2SAT 99
[2024-01-02 18:52] VITALS: BMI 23.4
--- NOTE | 2024-01-02 18:54 | EKG12_ITS ---
Test Reason : DYSRHYTHMIA Blood Pressure : / mmHG Vent. Rate : 084 BPM Atrial Rate : 084 BPM P-R Int : 160 ms QRS Dur : 096 ms QT Int : 340 ms P-R-T Axes : 028 -24 -26 degrees QTc Int : 401 ms Normal sinus rhythm Septal infarct , age undetermined Marked ST abnormality, possible lateral subendocardial injury Abnormal ECG Confirmed by Ayush Loomis ([id number]), tape editor TAHMINA HOBBS ([id number]) on 01/03/2024 8:05:45 AM Referred By: Confirmed By:Ayush Loomis
--- NOTE | 2024-01-02 19:18 | EDS_ITS ---
HPI <WALE Reid - Last Filed: 01/02/24 22:18> History of Present Illness Chief Complaint: Shortness of Breath Narrative Narrative: Patient presenting today due to shortness of breath that she has had for the past 5 days. She reports that her symptoms are present both at rest and with exertion. She reports that she has a history of a pancreatic mass that is being followed by Dr. Mackey, she did have an ERCP performed by a GI doctor at [facility], Dr. Patel on 12/27/2023. She reports that over the past several days she has been fatigued and has had generalized body aches. She endorses left-sided intermittent chest pain over the last several days. She has a PMH of diabetes mellitus, hypertension, and hyperlipidemia. She denies a history of any cardiac conditions. She has not had any recent cardiac testing such as a stress test or echocardiogram. PE Risk Factors: Negative for Prior DVT or PE, Recent immobilization or Recent travel PFS <WALE Reid - Last Filed: 01/02/24 22:18> [facility] Medical History Wears glasses Wears dentures Arthritis Fatty liver High cholesterol Anemia Non-smoker Depression Hypercholesteremia HTN (hypertension) Type 2 diabetes mellitus Polyp of duodenum Dyspnea GERD (gastroesophageal reflux disease) Liver mass Decreased appetite Intermittent diarrhea Home Medications ?Medication ?Instructions ?Recorded ?Last Taken ?Type aspirin 81 mg chewable tablet 81 mg PO DAILY@0800 09/13/17 12/25/22 History citalopram 20 mg tablet 20 mg PO DAILY 09/13/17 Unknown History omeprazole 20 mg capsule,delayed 20 mg PO DAILY 09/13/17 Unknown History release amlodipine 2.5 mg tablet 5 mg PO DAILY 03/31/22 Unknown History conjugated estrogens 0.625 mg/gram 0.625 mg vaginal ONCE 03/31/22 Unknown History vaginal cream ferrous sulfate 325 mg (65 mg 325 mg PO DAILY 03/31/22 Unknown History iron) tablet glimepiride 4 mg tablet 4 mg PO DAILY 03/31/22 Unknown History lisinopril 20 mg tablet 20 mg PO DAILY 03/31/22 Unknown History metformin 500 mg tablet 1,000 mg PO BID 03/31/22 Unknown History calcium carbonate (Calcium 600) 600 mg PO DAILY 01/02/24 Unknown History fluticasone propionate 50 2 spray intranasal DAILY PRN 01/02/24 Unknown History mcg/actuation nasal allergy symptoms spray,suspension (Allergy Relief (fluticasone)) rosuvastatin 5 mg tablet 5 mg PO DAILY 01/02/24 Unknown History sitagliptin phosphate 100 mg 100 mg PO DAILY 01/02/24 Unknown History tablet (Januvia) Allergy/AdvReac Type Severity Reaction Status Date / Time No Known Allergies Allergy Verified 01/02/24 18:21 Family History Mother Pancreatic cancer Father Heart disease Surgical History History of back surgery H/O: hysterectomy Hx of cholecystectomy History of appendectomy Social History Smoking Status: Former smoker ROS <WALE Reid - Last Filed: 01/02/24 22:18> ROS ED Constitutional Constitutional ED: Denies chills or fever(s) Cardiovascular Cardiovascular: Reports chest pain; Denies palpitations Respiratory/Chest Respiratory/Chest: Reports dyspnea and dyspnea on exertion; Denies cough Gastrointestinal Gastrointestinal: Denies abdominal pain, nausea or vomiting Musculoskeletal Musculoskeletal: Reports arthralgias Integumentary Denies rash Neurologic Neurologic: Reports weakness EXAM <WALE Reid - Last Filed: 01/02/24 22:18> Physical Exam Const Vital Signs: 01/02/24 18:21 01/02/24 18:49 01/02/24 20:20 Temperature 97.1 F L Temperature Source Temporal Pulse Rate 86 87 Respiratory Rate 22 H 19 H Respiratory Effort Short of Breath Respiratory Depth Shallow Respiratory Pattern Tachypnea Blood Pressure 120/56 L 111/76 Blood Pressure Mean 77 87 Pulse Ox 100 98 Oxygen Delivery Method Room Air Room Air Room Air Oxygen Flow Rate (L/min) 01/02/24 22:00 01/02/24 23:29 01/02/24 23:29 Temperature Temperature Source Pulse Rate 71 Respiratory Rate 21 H Respiratory Effort Respiratory Depth Respiratory Pattern Blood Pressure 130/53 H Blood Pressure Mean 78 Pulse Ox 97 85 92 Oxygen Delivery Method Room Air Room Air Nasal Cannula Oxygen Flow Rate (L/min) 3 Positive well nourished, well developed and no apparent distress General Appearance ED: well developed HEENT Reports normocephalic and head/scalp atraumatic Mouth ED: Yes moist mucous membranes normal Eyes PERRL and EOMs intact bilaterally Neck full ROM and supple Chest Wall inspection of chest normal Resp normal respiratory effort and clear to auscultation bilaterally Cardio regular rate and regular rhythm GI soft to palpation, non-tender, non-distended and no masses GI Narrative: Rectal exam: Normal sphincter tone, brown stool noted Back/Spine normal ROM and normal to inspection Extremity normal to inspection and full ROM Neuro oriented x3, CN's II-XII intact bilaterally, moves all extremities, no focal motor deficits and no sensory deficits noted Sensorium / Orientation: awake and alert Psych mental status grossly normal and thought process normal Skin no rashes or lesions noted and no wounds <Dr. Celso Rios DO - Last Filed: 01/03/24 00:22> Physical Exam Const Vital Signs: 01/02/24 18:21 01/02/24 18:49 01/02/24 20:20 Temperature 97.1 F L Temperature Source Temporal Pulse Rate 86 87 Respiratory Rate 22 H 19 H Respiratory Effort Short of Breath Respiratory Depth Shallow Respiratory Pattern Tachypnea Blood Pressure 120/56 L 111/76 Blood Pressure Mean 77 87 Pulse Ox 100 98 Oxygen Delivery Method Room Air Room Air Room Air Oxygen Flow Rate (L/min) 01/02/24 22:00 01/02/24 23:29 01/02/24 23:29 Temperature Temperature Source Pulse Rate 71 Respiratory Rate 21 H Respiratory Effort Respiratory Depth Respiratory Pattern Blood Pressure 130/53 H Blood Pressure Mean 78 Pulse Ox 97 85 92 Oxygen Delivery Method Room Air Room Air Nasal Cannula Oxygen Flow Rate (L/min) 3 General Appearance ED: pallor Skin General Skin Exam: pallor MDM <WALE Reid - Last Filed: 01/02/24 22:18> [facility] MDM Narrative Medical decision making narrative: Patient presenting with generalized body pain, shortness of breath, she also endorses left-sided intermittent chest pain. Her symptoms have been present over the last 5 days. Recent ERCP performed at [facility] to evaluate a pancreatic mass that has been known and followed by Dr. Mackey. She states that she is not being actively treated for cancer and to her knowledge this is not cancer. She is pale appearing. Cardiac labs will be obtained. Hemoglobin is 7.2, this is significantly decreased from her previous hemoglobin. She denies any melena or hematochezia. Rectal examination reveals brown stool and is stool occult positive. BMP shows a BUN of 20. Troponin is 2654. I did discuss the case with Dr. Loomis with cardiology, he does not recommend any anticoagulation at this time given her GI bleed, he recommends clearance from GI first. I will speak with the hospitalist for admission who recommends consulting GI. I did speak with Dr. Mackey, given she had a pancreatic biopsy performed during her ERCP, he does not feel comfortable treating this GI bleed as he does not have the equipment to fix this type of bleed. He recommends transfer. I did speak with Dr. Smart at [facility], he recommends transfer to the ICU, this is pending. Lab Data Attestation: I reviewed the patient's lab results. Labs: Laboratory Results - last 24 hr 01/02/24 01/02/24 19:35 21:53 WBC 7.7 RBC 3.23 L Hgb 7.2 L Hct 25.0 L MCV 77.4 L MCH 22.3 L MCHC 28.8 L RDW Std Deviation 46.2 H RDW Coeff of Cesario 17.3 H Plt Count 196 MPV 11.3 Immature Gran % (Auto) 0.900 Neut % (Auto) 69.1 Lymph % (Auto) 19.1 [place] % (Auto) 7.9 Eos % (Auto) 2.2 Baso % (Auto) 0.8 Absolute Neuts (auto) 5.3 Absolute Lymphs (auto) 1.47 Nucleated RBC % 0 Sodium 140 Potassium 3.6 Chloride 113 H Carbon Dioxide 24.0 Anion Gap 3 L BUN 20 H Creatinine 0.81 Estim Creat Clear Calc 37.24 Est GFR (MDRD) Af Amer 85 Est GFR (MDRD) Non-Af 70 BUN/Creatinine Ratio 24.6 H Glucose 215 H Calcium 8.8 Troponin I High Sens 2654 H* 3093 H* Radiography X-Ray: Read by ED Physician Diagnostic Testing: Clinical Impression(s) from Imaging Studies Chest X-Ray 01/02/24 20:05 IMPRESSION: 1. Apparent scarring in the bibasilar lungs, left greater than right and postoperative changes of the left hilum and in the left lung perhaps related to partial pneumonectomy/lobectomy. Correlate with history. 2. Overall hyperinflation of the lungs perhaps secondary to COPD. 3. No additional focal airspace disease, pleural effusion, or other acute findings. Electronically Signed: Timothy Strange DO at 20:24 EDT , Chest X-Ray 01/02/24 23:23 IMPRESSION: 1. Left greater than right basilar scarring and/or atelectasis. Superimposed pneumonia cannot be excluded. 2. Diffuse interstitial prominence likely secondary to chronic interstitial changes. Hyperinflation suggesting COPD. 3. Postoperative changes similar to the prior examination. Electronically Signed: Timothy Strange DO at 23:44 EDT , EKG Initial EKG: Comments: 84 bpm, normal sinus rhythm, ST depressions in lead V3, V4, V5, and V6. No ST elevation. Reviewed and interpreted by attending ED physician <Dr. Celso Rios, - Last Filed: 01/03/24 00:22> [facility] MDM Narrative Medical decision making narrative: Patient presenting with generalized body pain, shortness of breath, she also endorses left-sided intermittent chest pain. Her symptoms have been present over the last 5 days. Recent ERCP performed at [facility] to evaluate a pancreatic mass that has been known and followed by Dr. Mackey. She states that she is not being actively treated for cancer and to her knowledge this is not cancer. She is pale appearing. Cardiac labs will be obtained. Hemoglobin is 7.2, this is significantly decreased from her previous hemoglobin. She denies any melena or hematochezia. Rectal examination reveals brown stool and is stool occult positive. BMP shows a BUN of 20. Troponin is 2654. I did discuss the case with Dr. Loomis with cardiology, he does not recommend any anticoagulation at this time given her GI bleed, he recommends clearance from GI first. I will speak with the hospitalist for admission who recommends consulting GI. I did speak with Dr. Mackey, given she had a pancreatic biopsy performed during her ERCP, he does not feel comfortable treating this GI bleed as he does not have the equipment to fix this type of bleed. He recommends transfer. I did speak with Dr. Smart at [facility], he recommends transfer to the ICU, this is pending. Unfortunately [facility] is on diversion was no longer taking acute patients. Given this we reached out to several neighboring institutions to find a facility that could adequately care for her multiple comorbidities including NSTEMI and GI bleed for significant anemia and likely demand ischemia. We are awaiting transfer at this time. [facility] reached out the ICU physician Dr. Salcedo who refused the patient in transfer to [facility] stating there is a wait list and the patient will be better served seeking care at a [facility] facility such as [place] etc. [facility] a [facility] for the patient. Patient did become hypoxic requiring 2 L oxygen requirement while under my care. She was ordered a 2 L blood transfusion given concern for worsening anemia. Type and screen sent. EKG at this time showed normal sinus rhythm, left axis deviation, no intervals, noted deep ST depressions laterally consistent with subendocardial ischemia, slightly worsened than earlier EKG. Repeat CBC ordered. 2351 Continue to await [facility] transfer. At this time will attempt to transfer to [facility] as well. [facility] is also full. Called [facility] and spoke to career specialist (Tatiana cabral RN) who will forward information to their medical doctors and reach out to us if there is an accepting physician. Signed out to pm physician pending transfer and transfusion. Lab Data Labs: Laboratory Results - last 24 hr 01/02/24 01/02/24 19:35 21:53 WBC 7.7 RBC 3.23 L Hgb 7.2 L Hct 25.0 L MCV 77.4 L MCH 22.3 L MCHC 28.8 L RDW Std Deviation 46.2 H RDW Coeff of Cesario 17.3 H Plt Count 196 MPV 11.3 Immature Gran % (Auto) 0.900 Neut % (Auto) 69.1 Lymph % (Auto) 19.1 [place] % (Auto) 7.9 Eos % (Auto) 2.2 Baso % (Auto) 0.8 Absolute Neuts (auto) 5.3 Absolute Lymphs (auto) 1.47 Nucleated RBC % 0 Sodium 140 Potassium 3.6 Chloride 113 H Carbon Dioxide 24.0 Anion Gap 3 L BUN 20 H Creatinine 0.81 Estim Creat Clear Calc 37.24 Est GFR (MDRD) Af Amer 85 Est GFR (MDRD) Non-Af 70 BUN/Creatinine Ratio 24.6 H Glucose 215 H Calcium 8.8 Troponin I High Sens 2654 H* 3093 H* Radiography Diagnostic Testing: Clinical Impression(s) from Imaging Studies Chest X-Ray 01/02/24 20:05 IMPRESSION: 1. Apparent scarring in the bibasilar lungs, left greater than right and postoperative changes of the left hilum and in the left lung perhaps related to partial pneumonectomy/lobectomy. Correlate with history. 2. Overall hyperinflation of the lungs perhaps secondary to COPD. 3. No additional focal airspace disease, pleural effusion, or other acute findings. Electronically Signed: Timothy Strange DO at 20:24 EDT , Chest X-Ray 01/02/24 23:23 IMPRESSION: 1. Left greater than right basilar scarring and/or atelectasis. Superimposed pneumonia cannot be excluded. 2. Diffuse interstitial prominence likely secondary to chronic interstitial changes. Hyperinflation suggesting COPD. 3. Postoperative changes similar to the prior examination. Electronically Signed: Timothy Strange DO at 23:44 EDT , Discharge Plan Triage Chief Complaint: Shortness of Breath ED Midlevel Provider: Maddy Daly ED Provider: Celso Rios Dx/Rx/DC Orders Clinical Impression: Non-ST elevation MD (NSTEMI), Acute GI bleeding, Mass of pancreas, Shortness of breath Prescriptions: No Action amlodipine 2.5 mg tablet 5 mg PO DAILY glimepiride 4 mg tablet 4 mg PO DAILY lisinopril 20 mg tablet 20 mg PO DAILY conjugated estrogens 0.625 mg/gram cream 0.625 mg vaginal ONCE ferrous sulfate 325 mg (65 mg iron) tablet 325 mg PO DAILY citalopram 20 MG tablet 20 mg PO DAILY omeprazole 20 MG capsule 20 mg PO DAILY aspirin 81 MG tablet,chewable 81 mg PO DAILY@0800 metformin 500 mg tablet 1,000 mg PO BID calcium carbonate [Calcium 600] 600 mg calcium (1,500 mg) tablet 600 mg PO DAILY fluticasone propionate [Allergy Relief (fluticasone)] 50 mcg/actuation spray,suspension 2 spray intranasal DAILY PRN (Reason: allergy symptoms) Rx Instructions: administer into each nostril Januvia 100 mg tablet 100 mg PO DAILY rosuvastatin 5 mg tablet 5 mg PO DAILY Primary Care Provider: Elis Garrett Referrals: Elis Garrett NP-C [Primary Care Provider] - Print Language: Malaysian
[2024-01-02 19:47] LABS: Absolute Lymphocyte Count 1.47 X10^3/uL (0.83-4.51); Absolute Neutrophil Count 5.3 X10^3/uL (2.0-7.7); Basophil# 0.06 X10^3/uL; Basophil% 0.8 % (0-1); Eosinophil# 0.17 X10^3/uL; Eosinophils% 2.2 % (0-5); Hemoglobin 7.2 g/dL (12.0-15.0); Lymphocyte # 1.47 X10^3/ul (0.83-4.51); Lymphocyte % 19.1 % (19-41); Mean Corp Hgb Conc 28.8 g/dL (32-36); Mean Corpuscular Hgb 22.3 pg (27.0-32.0); Mean Corpuscular Volume 77.4 fL (81-99); Mean Platelet Vol. 11.3 fl (6.2-12.0); Monocyte# 0.61 X10^3/uL; Monocyte% 7.9 % (0-10); NRBC Flagged by Analyzer 0 % (0-5); Neutrophil # 5.31 X10^3/uL (2.7-7.7); Neutrophil % 69.1 % (47-70); Platelet Count 196 K/mm3 (150-450); RBC Distribution Width CV 17.3 % (11.6-14.6); RBC Distribution Width SD 46.2 fl (35.1-43.9); Red Blood Count 3.23 M/mm3 (4.2-5.4); White Blood Count 7.7 K/mm3 (4.4-11.0)
--- NOTE | 2024-01-02 20:05 | RAD_ITS ---
EXAM: XR CHEST, 2 VIEWS CLINICAL INDICATION: SOB TECHNIQUE: Frontal and lateral views of the chest. COMPARISON: CT abdomen and pelvis, 08/01/2023. FINDINGS: LUNGS AND PLEURAL SPACES: Apparent scarring in the bibasilar lungs, left greater than right and postoperative changes of the left hilum and in the left lung perhaps related to partial pneumonectomy/lobectomy. Overall hyperinflation of the lungs perhaps secondary to COPD. No pneumothorax. No additional focal airspace disease, pleural effusion, or other acute findings. HEART: No significant abnormality. Cardiac silhouette not enlarged. MEDIASTINUM: Central airways and mediastinal contour are unremarkable. BONES/JOINTS: Degenerative changes in the spine. No acute fracture. SOFT TISSUES: No significant abnormality. VASCULATURE: Atherosclerosis. RAD/Chest PA and Lateral IMPRESSION: 1. Apparent scarring in the bibasilar lungs, left greater than right and postoperative changes of the left hilum and in the left lung perhaps related to partial pneumonectomy/lobectomy. Correlate with history. 2. Overall hyperinflation of the lungs perhaps secondary to COPD. 3. No additional focal airspace disease, pleural effusion, or other acute findings. Electronically Signed: Timothy Strange DO at 20:24 EDT ,
[2024-01-02 20:20] VITALS: BP 111/76; PULSE 87; RESP 19; O2SAT 98
[2024-01-02 20:28] LABS: Anion Gap 3 (5-15); BUN 20 mg/dL (7-18); BUN/Creat Ratio 24.6 RATIO (10-20); Calcium,Total 8.8 mg/dL (8.5-10.1); Chloride 113 mmol/L (98-107); Creatinine, Serum 0.81 mg/dL (0.55-1.02); EST Glomerular Filtration Rate 70 mL/min (>60); Est Glom Filt Rate - Afr Amer 85 mL/min (>60); Estimated Creatinine Clearance 37.24 ml/min; Glucose 215 mg/dL (74-106); Potassium 3.6 mmol/L (3.5-5.1); Sodium Level 140 mmol/L (136-145); Troponin-I HS 2654 pg/mL (3.0-54.0)
[2024-01-02 22:00] VITALS: BP 130/53; PULSE 71; RESP 21; O2SAT 97
[2024-01-02] MEDS: 0.9% Normal Saline (1000mL) 1,000 ML 999 ML IV (22:19)
[2024-01-02 22:32] LABS: Troponin-I HS 3093 pg/mL (3.0-54.0)
--- NOTE | 2024-01-02 23:15 | EKG12_ITS ---
Test Reason : DYSRHYTHMIA Blood Pressure : / mmHG Vent. Rate : 092 BPM Atrial Rate : 092 BPM P-R Int : 146 ms QRS Dur : 112 ms QT Int : 396 ms P-R-T Axes : 051 -13 077 degrees QTc Int : 489 ms Sinus rhythm with occasional Premature ventricular complexes Septal infarct , age undetermined Marked ST abnormality, possible lateral subendocardial injury Abnormal ECG Confirmed by Ayush Loomis ([id number]), purchase request editor TAHMINA HOBBS ([id number]) on 01/03/2024 8:05:57 AM Referred By: MCKAYLA Confirmed By:Ayush Loomis
--- NOTE | 2024-01-02 23:23 | RAD_ITS ---
EXAM: XR CHEST, 1 VIEW CLINICAL INDICATION: SOB TECHNIQUE: Frontal view of the chest. COMPARISON: 01/02/2024 FINDINGS: LUNGS AND PLEURAL SPACES: Left greater than right basilar scarring and/or atelectasis. Superimposed pneumonia cannot be excluded. Diffuse interstitial prominence likely secondary to chronic interstitial changes. Hyperinflation suggesting COPD. Postoperative changes in the left lung. Postoperative changes of the left hilum. No pneumothorax. No effusion. HEART: No significant abnormality. Cardiac silhouette not enlarged. MEDIASTINUM: Central airways and mediastinal contour are unremarkable. BONES/JOINTS: No significant abnormality. No acute fracture. SOFT TISSUES: No significant abnormality. RAD/Chest 1 View (Portable) IMPRESSION: 1. Left greater than right basilar scarring and/or atelectasis. Superimposed pneumonia cannot be excluded. 2. Diffuse interstitial prominence likely secondary to chronic interstitial changes. Hyperinflation suggesting COPD. 3. Postoperative changes similar to the prior examination. Electronically Signed: Timothy Strange DO at 23:44 EDT ,
[2024-01-02 23:29] VITALS: O2SAT 85; O2SAT 92
[2024-01-03] VITALS (13 sets, daily range): BP systolic 116–139; BP diastolic 48–73; PULSE 70–83; RESP 15–22; TEMP 36.2–37; O2SAT 94–97
[2024-01-03 00:18] LABS: Absolute Lymphocyte Count 1.83 X10^3/uL (0.83-4.51); Absolute Neutrophil Count 5.5 X10^3/uL (2.0-7.7); Basophil# 0.09 X10^3/uL; Basophil% 1.1 % (0-1); Eosinophil# 0.33 X10^3/uL; Eosinophils% 3.9 % (0-5); Hematocrit 25.2 % (37-47); Hemoglobin 7.2 g/dL (12.0-15.0); Lymphocyte # 1.83 X10^3/ul (0.83-4.51); Lymphocyte % 21.5 % (19-41); Mean Corp Hgb Conc 28.6 g/dL (32-36); Mean Corpuscular Hgb 22.6 pg (27.0-32.0); Mean Platelet Vol. 11.3 fl (6.2-12.0); Monocyte% 8.2 % (0-10); NRBC Flagged by Analyzer 0.2 % (0-5); Neutrophil # 5.48 X10^3/uL (2.7-7.7); Neutrophil % 64.5 % (47-70); Platelet Count 205 K/mm3 (150-450); RBC Distribution Width CV 17.5 % (11.6-14.6); RBC Distribution Width SD 46.6 fl (35.1-43.9); Red Blood Count 3.19 M/mm3 (4.2-5.4); White Blood Count 8.5 K/mm3 (4.4-11.0)
[2024-01-03] MEDS: Ondansetron 4 MG/2 ML Vial IV (00:30)
[2024-01-03] MEDS: Morphine 2 MG/ML Syringe IV (00:44)
[2024-01-03 00:47] LABS: Troponin-I HS 3162 pg/mL (3.0-54.0)
--- NOTE | 2024-01-03 02:36 | ED.RN ---
This RN called report to [facility].
== END 2024-01-03 05:02 | disposition short-term general hospital (02) ==
PROVIDERS: Physician Assistant; Emergency Provider Emergency Medicine; PCP Nurse Practitioner Family; Visit Provider Emergency Medicine
DX: I21.4 Non-ST elevation (NSTEMI) myocardial infarction (principal); E11.9 Type 2 diabetes mellitus without complications; R06.02 Shortness of breath; K92.2 Gastrointestinal hemorrhage, unspecified; Z87.891 Personal history of nicotine dependence; D64.9 Anemia, unspecified; I10 Essential (primary) hypertension; K86.89 Other specified diseases of pancreas; E78.00 Pure hypercholesterolemia, unspecified; Z79.82 Long term (current) use of aspirin; Z79.899 Other long term (current) drug therapy; F32.A Depression, unspecified; Z79.84 Long term (current) use of oral hypoglycemic drugs; Z90.710 Acquired absence of both cervix and uterus; Z90.49 Acquired absence of other specified parts of digestive tract
CPT/HCPCS: 71045; 71046; 80048; 82274; 84484; 85025; 86850; 86900; 86901; 86920; 93005; 96361; 96374; 96375; 99285; J7030; J7040; P9016; A4216; J2405

== ENCOUNTER → 2024-02-13 | Outpatient (CLI) | payer MEDICARE, OTHER, SELFPAY ==
[2024-02-13 16:20] LABS: Absolute Lymphocyte Count 1.73 X10^3/uL (0.83-4.51); Absolute Neutrophil Count 4.3 X10^3/uL (2.0-7.7); Basophil# 0.09 X10^3/uL; Basophil% 1.2 % (0-1); Eosinophil# 0.43 X10^3/uL; Eosinophils% 5.9 % (0-5); Hematocrit 33.1 % (37-47); Hemoglobin 10.2 g/dL (12.0-15.0); Lymphocyte # 1.73 X10^3/ul (0.83-4.51); Lymphocyte % 23.9 % (19-41); Mean Corp Hgb Conc 30.8 g/dL (32-36); Mean Corpuscular Volume 87.6 fL (81-99); Mean Platelet Vol. 11.5 fl (6.2-12.0); Monocyte% 9.7 % (0-10); NRBC Flagged by Analyzer 0 % (0-5); Neutrophil # 4.25 X10^3/uL (2.7-7.7); Neutrophil % 58.7 % (47-70); POSITIVE MORPHOLOGY YES; Platelet Count 191 K/mm3 (150-450); RBC Distribution Width CV 20.1 % (11.6-14.6); RBC Distribution Width SD 63.7 fl (35.1-43.9); RET-HE 29.9 pg (30-35); Red Blood Count 3.78 M/mm3 (4.2-5.4); Reticulocyte Count 1.45 % (0.5-1.5); White Blood Count 7.2 K/mm3 (4.4-11.0)
[2024-02-13 16:31] LABS: Differential Indicated SCAN CRITERIA MET
[2024-02-13 16:46] LABS: Ferritin 53 ng/mL (8-252); Iron 39 ug/dL (50-170); Iron Binding Capacity,Total 387 ug/dL (250-450); LDH 189 U/L (84-246)
[2024-02-13 16:47] LABS: Differential Comment SCANNED
[2024-02-16 06:09] LABS: Carbohydrate Ag 19-9 2261 < 2 U/mL (0-35); Endomysial Antibody IgA Negative (Negative); Immunoglobulin A 187 mg/dL (64-422); t-Transglutaminase IgA <2 U/mL (0-3)
== END | disposition home or self-care (01) ==
LOC: LABSPEC 15:33 → LAB 15:34
PROVIDERS: PCP Nurse Practitioner Family; Referring Provider Internal Medicine Gastroenterology; Visit Provider Internal Medicine Gastroenterology
DX: D49.0 Neoplasm of unspecified behavior of digestive system (principal); C25.9 Malignant neoplasm of pancreas, unspecified; D64.9 Anemia, unspecified
CPT/HCPCS: 36415; 82728; 82784; 83516; 83540; 83550; 83615; 85025; 85045; 86255; 86301